=== PATIENT | male | born 1990 | race Caucasian/White ===

== ENCOUNTER 2023-03-14 11:05 | Emergency (ER) | payer OTHER ==
[~2023-03-14] VITALS: Ht 175.3 cm; Wt 84.1 kg
[2023-03-14] MEDS ORDERED: IBUPROFEN 600 MG TABLET PO ONE (15:00)
[2023-03-14 15:32] LABS: BASOPHILS % (AUTO) 0.3 % (0.0-2.0); EOSINOPHILS % (AUTO) 0 % (1.0-6.0); HEMATOCRIT 43.7 % (41-53); LYMPHOCYTES # (AUTO) 1.5 K/uL (1.0-4.8); LYMPHOCYTES % (AUTO) 11.6 % (22.0-44.0); MEAN CORPUSCULAR HEMOGLOBIN 27.1 pg (26.0-34.0); MEAN CORPUSCULAR HGB CONC 32.1 G/dL (31.0-37.0); MEAN CORPUSCULAR VOLUME 84 fL (80-100); MONOCYTES # (AUTO) 0.9 K/uL (0.1-1.0); MONOCYTES % (AUTO) 6.9 % (2.0-9.0); NEUTROPHILS # (AUTO) 10.2 K/uL (1.8-7.7); NEUTROPHILS % (AUTO) 81.2 % (40.0-70.0); PLATELET COUNT (AUTO) 266 K/uL (150-450); RED BLOOD CELL COUNT(AUTO) 5.18 MIL/uL (4.50-5.90); RED CELL DISTRIBUTION WIDTH 13.7 % (11.5-14.5)
[2023-03-14 15:42] LABS: ANION GAP 10 mmol/L (8-16); APPEARANCE,URINE CLEAR (CLEAR); BILIRUBIN,URINE NEGATIVE (NEGATIVE); CALCIUM, TOTAL 9.8 mg/dL (8.8-10.5); CARBON DIOXIDE 27 mmol/L (22-29); CHLORIDE 101 mmol/L (98-107); CREATININE 0.81 mg/dL (0.60-1.30); GLOMERULAR FILTR. RATE CALC > 60 mL/min (>60); GLUCOSE, URINE (UA) NEGATIVE (NEGATIVE); GLUCOSE,RANDOM 115 mg/dL (70-110); LEUKOCYTE ESTERASE ,URINE NEGATIVE (NEGATIVE); NITRATE,URINE NEGATIVE (NEGATIVE); OCCULT BLOOD,URINE LARGE (NEGATIVE); PH,URINE 6.5 (5.0-8.0); POTASSIUM 4.5 mmol/L (3.5-5.1); PROTEIN,URINE TRACE mg/dL (NEGATIVE); SODIUM SERUM 138 mmol/L (136-145); SPECIFIC GRAVITIY, URINE 1.013 (1.003-1.030); UREA NITROGEN, BLOOD 11 mg/dL (7-18); UROBILINOGEN,URINE <=1.0 mg/dL (<=1.0)
[2023-03-14 15:48] LABS: ALANINE AMINOTRANSFERASE 29 U/L (12-78); ALBUMIN 4.5 g/dL (3.4-5.0); ALKALINE PHOSPHATASE 85 U/L (46-116); ASPARTATE AMINOTRANSFERASE 16 U/L (15-37); BILIRUBIN,TOTAL 0.7 mg/dL (0.1-1.0); LIPASE 30 U/L (73-393); TOTAL PROTEIN, SERUM 8.9 g/dL (6.4-8.2)
[2023-03-14 16:05] LABS: RBC,URINE >100 /HPF (0-2)
[2023-03-14 16:06] LABS: BACTERIA,URINE None Seen /HPF (None Seen); WBC,URINE None Seen /HPF (0-5)
[2023-03-14 16:56] VITALS: BP 134/99
[2023-03-14] MEDS ORDERED: IBUP-1492 PO (17:27)
[2023-03-14] MEDS ORDERED: TAMS-13 PO (17:27)
== END 2023-03-14 18:18 | disposition home or self-care (01) ==
LOC: EMS 11:08
DX: N20.9 Urinary calculus, unspecified (principal)
CPT/HCPCS: 74176; 80053; 81001; 83690; 85025; 99284

== ENCOUNTER 2023-12-02 07:03 | Emergency (ER) | payer OTHER ==
[~2023-12-02] VITALS: Ht 172.7 cm; Wt 84.1 kg
[~2023-12-02 07:03] MED LIST: IBUP-1492 PO; TAMS0.4C94 PO
[2023-12-02 07:20] VITALS: TEMP 98.2
[2023-12-02] MEDS ORDERED: EMTR1TAB13 PO (07:24)
[2023-12-02 08:09] LABS: APPEARANCE,URINE CLEAR (CLEAR); BILIRUBIN,URINE NEGATIVE (NEGATIVE); COLOR,URINE YELLOW (YELLOW); GLUCOSE, URINE (UA) TRACE mg/dL (NEGATIVE); KETONES,URINE NEGATIVE (NEGATIVE); LEUKOCYTE ESTERASE ,URINE TRACE (NEGATIVE); NITRATE,URINE NEGATIVE (NEGATIVE); OCCULT BLOOD,URINE LARGE (NEGATIVE); PH,URINE 6.5 (5.0-8.0); PROTEIN,URINE 30-70 mg/dL (NEGATIVE); SPECIFIC GRAVITIY, URINE 1.024 (1.003-1.030); UROBILINOGEN,URINE <=1.0 mg/dL (<=1.0)
[2023-12-02 08:14] LABS: BASOPHILS % (AUTO) 0.5 % (0.0-2.0); EOSINOPHILS % (AUTO) 0.3 % (1.0-6.0); HEMATOCRIT 38.3 % (41-53); LYMPHOCYTES # (AUTO) 1.2 K/uL (1.0-4.8); LYMPHOCYTES % (AUTO) 9.5 % (22.0-44.0); MEAN CORPUSCULAR HEMOGLOBIN 28.5 pg (26.0-34.0); MEAN CORPUSCULAR VOLUME 84 fL (80-100); MONOCYTES # (AUTO) 0.9 K/uL (0.1-1.0); MONOCYTES % (AUTO) 7.5 % (2.0-9.0); NEUTROPHILS # (AUTO) 10.1 K/uL (1.8-7.7); NEUTROPHILS % (AUTO) 82.2 % (40.0-70.0); PLATELET COUNT (AUTO) 301 K/uL (150-450); RED BLOOD CELL COUNT(AUTO) 4.56 MIL/uL (4.50-5.90); RED CELL DISTRIBUTION WIDTH 14.1 % (11.5-14.5); WHITE BLOOD COUNT (AUTO) 12.3 K/uL (4.5-11.0)
[2023-12-02 08:20] LABS: BACTERIA,URINE None Seen /HPF (None Seen); SQUAMOUS EPITHELIAL CELL,UR None Seen /LPF (None Seen); WBC,URINE 0-2 /HPF (0-5)
[2023-12-02 08:24] LABS: ANION GAP 6 mmol/L (8-16); CALCIUM, TOTAL 9.6 mg/dL (8.8-10.5); CARBON DIOXIDE 30 mmol/L (22-29); CHLORIDE 99 mmol/L (98-107); CREATININE 0.83 mg/dL (0.60-1.30); GLOMERULAR FILTR. RATE CALC > 60 mL/min (>60); GLUCOSE,RANDOM 113 mg/dL (70-110); POTASSIUM 4.5 mmol/L (3.5-5.1); SODIUM SERUM 135 mmol/L (136-145); UREA NITROGEN, BLOOD 16 mg/dL (7-18)
[2023-12-02 08:29] LABS: ALANINE AMINOTRANSFERASE 33 U/L (12-78); ALBUMIN 4.1 g/dL (3.4-5.0); ALKALINE PHOSPHATASE 67 U/L (46-116); ASPARTATE AMINOTRANSFERASE 16 U/L (15-37); BILIRUBIN,TOTAL 0.2 mg/dL (0.1-1.0); LIPASE 24 U/L (16-77)
[2023-12-02] MEDS ORDERED: KETOROLAC TROMETHAMINE 30 MG/ML VIAL IVP ONE (09:00)
[2023-12-02] MEDS ORDERED: SODIUM CHLORIDE 0.9% 1,000 ML IV ONE (09:00)
[2023-12-02 12:33] VITALS: BP 129/82; PULSE 76; RESP 16
== END 2023-12-02 13:09 | disposition home or self-care (01) ==
LOC: EMS 07:04
DX: N20.9 Urinary calculus, unspecified (principal)
CPT/HCPCS: 99285; 96374; 96361; 80053; 81001; 83690; 85025; 36415; J1885; J7030